=== PATIENT | male | born 1980 | race Caucasian/White ===

== ENCOUNTER 2018-11-08 13:41 | Emergency (ER) | payer MEDICAID ==
[~2018-11-08] VITALS: Ht 193 cm; Wt 94.7 kg
[2018-11-08] MEDS ORDERED: CYCLOBENZAPRINE 10 MG TABLET PO ONE (14:00)
[2018-11-08] MEDS ORDERED: HYDROcodone/APAP 5/325 TABLET ONE (14:00)
[2018-11-08] MEDS ORDERED: ONDANSETRON ODT 4 MG PO ONE (14:00)
[2018-11-08] MEDS ORDERED: CYCLOBENZAPRINE 10 MG TABLET ONE (14:00)
[2018-11-08] MEDS ORDERED: HYDROcodone/APAP 5/325 TABLET PO ONE (14:00)
[2018-11-08] MEDS ORDERED: ONDANSETRON ODT 4 MG ONE (14:01)
[2018-11-08 14:41] VITALS: BP 162/97
== END 2018-11-08 14:43 | disposition home or self-care (01) ==
LOC: ED 14:14
DX: M54.41 Lumbago with sciatica, right side (principal); M46.1 Sacroiliitis, not elsewhere classified; F17.200 Nicotine dependence, unspecified, uncomplicated
CPT/HCPCS: 72110; 99284; J7512; Q0162